=== PATIENT | male | born 1970 | race African-American/Black ===

== ENCOUNTER 2019-07-28 13:36 | Inpatient (IN) | payer OTHER ==
[2019-07-28 16:48] VITALS: BMI 32.5
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
[2019-07-28] MEDS ORDERED: cloNIDine HCL 0.1 MG TABLET PO PRN (17:47)
[2019-07-28] MEDS ORDERED: METHOCARBAMOL 500 MG TABLET PO PRN (17:47)
[2019-07-28] MEDS ORDERED: BISMUTH SUBSALICYLATE 524 MG/30 ML UD PO PRN (17:47)
[2019-07-28] MEDS ORDERED: MENTHOL/PHENOL 1 EACH UD MM PRN (17:47)
[2019-07-28] MEDS ORDERED: MELATONIN 5 MG TABLETS PO PRN (17:47)
[2019-07-28] MEDS ORDERED: hydrOXYzine PAMOATE 25 MG CAPSULE (FP) PO PRN (17:47)
[2019-07-28] MEDS ORDERED: MAGNESIUM HYDROX 2400MG/30ML ORAL SUSPENSION 30 ML CUP PO PRN (17:47)
[2019-07-28] MEDS ORDERED: MAG HYDROX/AL HYDROX/SIMETH 30 ML UNIT-DOSE CUP PO PRN (17:47)
[2019-07-28] MEDS ORDERED: MAGNESIUM CITRATE 300 ML BOTTLE PO PRN (17:47)
[2019-07-28] MEDS ORDERED: IBUPROFEN 400 MG TABLET (FP) PO PRN (17:47)
[2019-07-28] MEDS ORDERED: ACETAMINOPHEN 325 MG TABLET (FP) PO PRN ×2 (17:47)
[2019-07-28] MEDS ORDERED: METHADONE HCL 10 MG TABLET (FOR DETOX USE ONLY) PO ONE (19:00)
[2019-07-28] MEDS ORDERED: LEVETIRACETAM 750 MG PO SCH (22:00)
[2019-07-28] MEDS ORDERED: levETIRAcetam 250 MG TABLET (FP) PO SCH (22:00)
[2019-07-28] MEDS: QUEtiapine FUMARATE 200 MG TABLET PO SCH (22:17)
[2019-07-28] MEDS: levETIRAcetam 500 MG TABLET (FP) PO SCH (22:17)
[2019-07-28] MEDS: THIAMINE HCL 100 MG TABLET (FP) PO SCH (22:18)
[2019-07-29] MEDS ORDERED: METHADONE HCL 10 MG TABLET (FOR DETOX USE ONLY) ONE (09:00)
[2019-07-29] MEDS ORDERED: METHADONE HCL 5 MG TABLET (FOR DETOX USE ONLY) ONE (09:00)
[2019-07-29] MEDS ORDERED: METHADONE (DETOX) 20 MG, METHADONE (DETOX) 5 MG PO ONE (10:00)
[2019-07-29] MEDS: levETIRAcetam 500 MG TABLET (FP) PO SCH ×2 (10:40→22:07)
[2019-07-29] MEDS: PRENATAL VITAMINS W/ FOLIC ACID TABLET (FP) PO SCH (10:42)
[2019-07-29 10:44] LABS: HEMATOCRIT 36.1 % (35.4-49); HEMOGLOBIN 12.2 GM/dL (11.7-16.9); MCH 28.6 pg (25.7-33.7); MCHC 33.7 g/dl (32.0-35.9); MEAN CELL VOLUME 84.9 fl (80-96); MEAN PLT VOLUME 8.3 fl (7.5-11.1); PLATELET COUNT 345 K/MM3 (134-434); RBC 4.25 M/mm3 (4.00-5.60); RDW 15.9 % (11.9-15.9); WHITE BLOOD COUNT 8.7 K/mm3 (4.0-10.0)
[2019-07-29 10:50] LABS: ALBUMIN 3.3 g/dl (3.4-5.0); BILIRUBIN,TOTAL 0.2 mg/dL (0.2-1); BLOOD UREA NITROGEN 10.6 mg/dL (7-18); CALCIUM 8.8 mg/dL (8.5-10.1); CREATININE 0.8 mg/dL (0.55-1.3); POTASSIUM 3.6 mmol/L (3.5-5.1); TOT PROT 6.8 g/dl (6.4-8.2)
--- NOTE | 2019-07-29 11:38 | PN ---
BHS COWS - Scale Resting Pulse: 1= [place] 81-100 Sweatin= Chills/Flushing Restless Observation: 0= Sits Still Pupil Size: 1= Pupils >than Normal Bone or Joint Aches: 1= Mild Discomfort Runny Nose/ Eye Tearin= Nasal Congestion GI Upset > 30mins: 2= Nausea/Diarrhea Tremor Observation of Outstretched Hands: 2= Slight Tremor Visible Yawning Observation: 1= 1-2x During Session Anxiety or Irritability: 1=Feels Anxious/Irritable Goose Flesh Skin: 3=Piloerection COWS Score: 14 BHS Progress Note (SOAP) Subjective: doing well with methadone detox regimen tolerate food and fluid well social with peers in day room discuss aftercare with staff encourage the patient to consider medication assisted treatment program 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 narcan from pharmacy Objective: 07/29/19 11:45 Vital Signs Temperature 97.4 F L 07/29/19 09:34 Pulse Rate 83 07/29/19 09:34 Respiratory Rate 18 07/29/19 09:34 Blood Pressure 108/70 07/29/19 09:34 O2 Sat by Pulse Oximetry (%) Laboratory Last Values WBC 8.7 K/mm3 (4.0-10.0) 07/29/19 08:30 RBC 4.25 M/mm3 (4.00-5.60) 07/29/19 08:30 Hgb 12.2 GM/dL (11.7-16.9) 07/29/19 08:30 Hct 36.1 % (35.4-49) 07/29/19 08:30 MCV 84.9 fl (80-96) 07/29/19 08:30 MCH 28.6 pg (25.7-33.7) 07/29/19 08:30 MCHC 33.7 g/dl (32.0-35.9) 07/29/19 08:30 RDW 15.9 % (11.9-15.9) 07/29/19 08:30 Plt Count 345 K/MM3 (134-434) 07/29/19 08:30 MPV 8.3 fl (7.5-11.1) 07/29/19 08:30 Sodium 140 mmol/L (136-145) 07/29/19 08:30 Potassium 3.6 mmol/L (3.5-5.1) 07/29/19 08:30 Chloride 104 mmol/L (98-107) 07/29/19 08:30 Carbon Dioxide 28 mmol/L (21-32) 07/29/19 08:30 Anion Gap 9 MMOL/L (8-16) 07/29/19 08:30 BUN 10.6 mg/dL (7-18) 07/29/19 08:30 Creatinine 0.8 mg/dL (0.55-1.3) 07/29/19 08:30 Est GFR (CKD-EPI)AfAm 121.57 07/29/19 08:30 Est GFR (CKD-EPI)NonAf 104.89 07/29/19 08:30 Random Glucose 120 mg/dL (74-106) H 07/29/19 08:30 Calcium 8.8 mg/dL (8.5-10.1) 07/29/19 08:30 Total Bilirubin 0.2 mg/dL (0.2-1) 07/29/19 08:30 AST 9 U/L (15-37) L 07/29/19 08:30 ALT 24 U/L (13-61) 07/29/19 08:30 Alkaline Phosphatase 69 U/L (45-117) 07/29/19 08:30 Total Protein 6.8 g/dl (6.4-8.2) 07/29/19 08:30 Albumin 3.3 g/dl (3.4-5.0) L 07/29/19 08:30 lab noted Assessment: 07/29/19 11:46 opiate withdrawal sx Plan: continue methadone detox regimen
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
[2019-07-29] MEDS: THIAMINE HCL 100 MG TABLET (FP) PO SCH (22:07)
[2019-07-29] MEDS: QUEtiapine FUMARATE 200 MG TABLET PO SCH (22:07)
[2019-07-29] MEDS: DIVALPROEX SODIUM 250 MG TABLET E.C. PO SCH (22:07)
[2019-07-30] MEDS ORDERED: METHADONE HCL 10 MG TABLET (FOR DETOX USE ONLY) PO ONE (10:00)
[2019-07-30] MEDS ORDERED: DICYCLOMINE HCL 10 MG CAPSULE PO ONE (10:17)
--- NOTE | 2019-07-30 10:23 | PN ---
S COWS - Scale Resting Pulse: 0= [place] 80 or Below Sweatin= Chills/Flushing Restless Observation: 0= Sits Still Pupil Size: 1= Pupils >than Normal Bone or Joint Aches: 1= Mild Discomfort Runny Nose/ Eye Tearin= Nasal Congestion GI Upset > 30mins: 2= Nausea/Diarrhea Tremor Observation of Outstretched Hands: 2= Slight Tremor Visible Yawning Observation: 1= 1-2x During Session Anxiety or Irritability: 2=Irritable/Anxious Goose Flesh Skin: 0=Smooth Skin COWS Score: 11 [facility] Progress Note (SOAP) Subjective: c/o stomach cramping tremor shaking bentyl 20 mg x 1 now encourage maalox Objective: 07/30/19 10:20 Vital Signs Temperature 97.3 F L 07/30/19 09:35 Pulse Rate 72 07/30/19 09:35 Respiratory Rate 18 07/30/19 09:35 Blood Pressure 103/67 07/30/19 09:35 O2 Sat by Pulse Oximetry (%) Laboratory Last Values WBC 8.7 K/mm3 (4.0-10.0) 07/29/19 08:30 RBC 4.25 M/mm3 (4.00-5.60) 07/29/19 08:30 Hgb 12.2 GM/dL (11.7-16.9) 07/29/19 08:30 Hct 36.1 % (35.4-49) 07/29/19 08:30 MCV 84.9 fl (80-96) 07/29/19 08:30 MCH 28.6 pg (25.7-33.7) 07/29/19 08:30 MCHC 33.7 g/dl (32.0-35.9) 07/29/19 08:30 RDW 15.9 % (11.9-15.9) 07/29/19 08:30 Plt Count 345 K/MM3 (134-434) 07/29/19 08:30 MPV 8.3 fl (7.5-11.1) 07/29/19 08:30 Sodium 140 mmol/L (136-145) 07/29/19 08:30 Potassium 3.6 mmol/L (3.5-5.1) 07/29/19 08:30 Chloride 104 mmol/L (98-107) 07/29/19 08:30 Carbon Dioxide 28 mmol/L (21-32) 07/29/19 08:30 Anion Gap 9 MMOL/L (8-16) 07/29/19 08:30 BUN 10.6 mg/dL (7-18) 07/29/19 08:30 Creatinine 0.8 mg/dL (0.55-1.3) 07/29/19 08:30 Est GFR (CKD-EPI)AfAm 121.57 07/29/19 08:30 Est GFR (CKD-EPI)NonAf 104.89 07/29/19 08:30 Random Glucose 120 mg/dL (74-106) H 07/29/19 08:30 Calcium 8.8 mg/dL (8.5-10.1) 07/29/19 08:30 Total Bilirubin 0.2 mg/dL (0.2-1) 07/29/19 08:30 AST 9 U/L (15-37) L 07/29/19 08:30 ALT 24 U/L (13-61) 07/29/19 08:30 Alkaline Phosphatase 69 U/L (45-117) 07/29/19 08:30 Total Protein 6.8 g/dl (6.4-8.2) 07/29/19 08:30 Albumin 3.3 g/dl (3.4-5.0) L 07/29/19 08:30 RPR Titer Nonreactive (NONREACTIVE) 07/29/19 08:30 lab noted 07/30/19 10:23 fasting glucose Assessment: 07/30/19 10:24 opiate withdrawal sx gerd discontinue motrin begin aspirin and zantac Plan: continue methadone detox regimen
[2019-07-30] MEDS: levETIRAcetam 500 MG TABLET (FP) PO SCH ×2 (10:33→22:05)
[2019-07-30] MEDS: PRENATAL VITAMINS W/ FOLIC ACID TABLET (FP) PO SCH (10:33)
[2019-07-30] MEDS: DIVALPROEX SODIUM 250 MG TABLET E.C. PO SCH ×2 (10:37→22:06)
[2019-07-30] MEDS: RANITIDINE HCL 150 MG TABLET (FP) PO SCH ×2 (11:10→22:06)
[2019-07-30] MEDS: ASPIRIN 81 MG CHEWABLE TABLETS PO SCH (14:09)
[2019-07-30] MEDS: THIAMINE HCL 100 MG TABLET (FP) PO SCH (22:05)
[2019-07-30] MEDS: QUEtiapine FUMARATE 200 MG TABLET PO SCH (22:06)
[2019-07-31] MEDS ORDERED: METHADONE (DETOX) 10 MG, METHADONE (DETOX) 5 MG PO ONE (10:00)
[2019-07-31] MEDS ORDERED: METHADONE HCL 10 MG TABLET (FOR DETOX USE ONLY) ONE (10:13)
[2019-07-31] MEDS ORDERED: METHADONE HCL 5 MG TABLET (FOR DETOX USE ONLY) ONE (10:13)
[2019-07-31] MEDS: DIVALPROEX SODIUM 250 MG TABLET E.C. PO SCH ×2 (10:14→22:03)
[2019-07-31] MEDS: levETIRAcetam 500 MG TABLET (FP) PO SCH ×2 (10:15→22:04)
[2019-07-31] MEDS: ASPIRIN 81 MG CHEWABLE TABLETS PO SCH (10:16)
[2019-07-31] MEDS: PRENATAL VITAMINS W/ FOLIC ACID TABLET (FP) PO SCH (10:17)
[2019-07-31] MEDS: RANITIDINE HCL 150 MG TABLET (FP) PO SCH ×2 (10:17→22:03)
--- NOTE | 2019-07-31 14:10 | PN ---
BHS COWS - Scale Resting Pulse: 1= [place] 81-100 Sweatin= Chills/Flushing Restless Observation: 0= Sits Still Pupil Size: 1= Pupils >than Normal Bone or Joint Aches: 1= Mild Discomfort Runny Nose/ Eye Tearin= None GI Upset > 30mins: 1= Stomach Cramp Tremor Observation of Outstretched Hands: 1= Tremor [place], Not Seen Yawning Observation: 0= None Anxiety or Irritability: 1=Feels Anxious/Irritable Goose Flesh Skin: 0=Smooth Skin COWS Score: 7 BHS Progress Note (SOAP) Subjective: requests ensure bmi 32.6 glucose serum elevation fasting serumpending hold ensure at this time Objective: Vital Signs Temperature 98.3 F 07/31/19 13:52 Pulse Rate 87 07/31/19 13:52 Respiratory Rate 18 07/31/19 13:52 Blood Pressure 136/90 07/31/19 13:52 O2 Sat by Pulse Oximetry (%) Laboratory Last Values WBC 8.7 K/mm3 (4.0-10.0) 07/29/19 08:30 RBC 4.25 M/mm3 (4.00-5.60) 07/29/19 08:30 Hgb 12.2 GM/dL (11.7-16.9) 07/29/19 08:30 Hct 36.1 % (35.4-49) 07/29/19 08:30 MCV 84.9 fl (80-96) 07/29/19 08:30 MCH 28.6 pg (25.7-33.7) 07/29/19 08:30 MCHC 33.7 g/dl (32.0-35.9) 07/29/19 08:30 RDW 15.9 % (11.9-15.9) 07/29/19 08:30 Plt Count 345 K/MM3 (134-434) 07/29/19 08:30 MPV 8.3 fl (7.5-11.1) 07/29/19 08:30 Sodium 140 mmol/L (136-145) 07/29/19 08:30 Potassium 3.6 mmol/L (3.5-5.1) 07/29/19 08:30 Chloride 104 mmol/L (98-107) 07/29/19 08:30 Carbon Dioxide 28 mmol/L (21-32) 07/29/19 08:30 Anion Gap 9 MMOL/L (8-16) 07/29/19 08:30 BUN 10.6 mg/dL (7-18) 07/29/19 08:30 Creatinine 0.8 mg/dL (0.55-1.3) 07/29/19 08:30 Est GFR (CKD-EPI)AfAm 121.57 07/29/19 08:30 Est GFR (CKD-EPI)NonAf 104.89 07/29/19 08:30 Random Glucose 120 mg/dL (74-106) H 07/29/19 08:30 Calcium 8.8 mg/dL (8.5-10.1) 07/29/19 08:30 Total Bilirubin 0.2 mg/dL (0.2-1) 07/29/19 08:30 AST 9 U/L (15-37) L 07/29/19 08:30 ALT 24 U/L (13-61) 07/29/19 08:30 Alkaline Phosphatase 69 U/L (45-117) 07/29/19 08:30 Total Protein 6.8 g/dl (6.4-8.2) 07/29/19 08:30 Albumin 3.3 g/dl (3.4-5.0) L 07/29/19 08:30 RPR Titer Nonreactive (NONREACTIVE) 07/29/19 08:30 lab noted Assessment: 07/31/19 14:10 opiate withdrawal sx Plan: continue methadone detox regimen
[2019-07-31] MEDS: THIAMINE HCL 100 MG TABLET (FP) PO SCH (22:03)
[2019-07-31] MEDS: QUEtiapine FUMARATE 200 MG TABLET PO SCH (22:03)
[2019-08-01] MEDS ORDERED: METHADONE HCL 10 MG TABLET (FOR DETOX USE ONLY) PO ONE (10:00)
[2019-08-01] MEDS: ASPIRIN 81 MG CHEWABLE TABLETS PO SCH (10:32)
[2019-08-01] MEDS: DIVALPROEX SODIUM 250 MG TABLET E.C. PO SCH ×2 (10:32→22:12)
[2019-08-01] MEDS: levETIRAcetam 500 MG TABLET (FP) PO SCH ×2 (10:34→22:12)
[2019-08-01] MEDS: RANITIDINE HCL 150 MG TABLET (FP) PO SCH ×2 (10:35→22:13)
[2019-08-01] MEDS: PRENATAL VITAMINS W/ FOLIC ACID TABLET (FP) PO SCH (10:35)
--- NOTE | 2019-08-01 12:46 | PN ---
BHS COWS - Scale Resting Pulse: 0= [place] 80 or Below Sweatin= Chills/Flushing Restless Observation: 0= Sits Still Pupil Size: 0= Normal to Room Light Bone or Joint Aches: 1= Mild Discomfort Runny Nose/ Eye Tearin= None GI Upset > 30mins: 0= None Tremor Observation of Outstretched Hands: 1= Tremor [place], Not Seen Yawning Observation: 0= None Anxiety or Irritability: 1=Feels Anxious/Irritable Goose Flesh Skin: 0=Smooth Skin COWS Score: 4 BHS Progress Note (SOAP) Subjective: doing well with methadone detox regimen feeling better less tremor mild body ache Objective: 08/01/19 12:45 Vital Signs Temperature 97.0 F L 08/01/19 09:42 Pulse Rate 70 08/01/19 09:42 Respiratory Rate 20 08/01/19 09:42 Blood Pressure 107/64 08/01/19 09:42 O2 Sat by Pulse Oximetry (%) Laboratory Last Values WBC 8.7 K/mm3 (4.0-10.0) 07/29/19 08:30 RBC 4.25 M/mm3 (4.00-5.60) 07/29/19 08:30 Hgb 12.2 GM/dL (11.7-16.9) 07/29/19 08:30 Hct 36.1 % (35.4-49) 07/29/19 08:30 MCV 84.9 fl (80-96) 07/29/19 08:30 MCH 28.6 pg (25.7-33.7) 07/29/19 08:30 MCHC 33.7 g/dl (32.0-35.9) 07/29/19 08:30 RDW 15.9 % (11.9-15.9) 07/29/19 08:30 Plt Count 345 K/MM3 (134-434) 07/29/19 08:30 MPV 8.3 fl (7.5-11.1) 07/29/19 08:30 Sodium 140 mmol/L (136-145) 07/29/19 08:30 Potassium 3.6 mmol/L (3.5-5.1) 07/29/19 08:30 Chloride 104 mmol/L (98-107) 07/29/19 08:30 Carbon Dioxide 28 mmol/L (21-32) 07/29/19 08:30 Anion Gap 9 MMOL/L (8-16) 07/29/19 08:30 BUN 10.6 mg/dL (7-18) 07/29/19 08:30 Creatinine 0.8 mg/dL (0.55-1.3) 07/29/19 08:30 Est GFR (CKD-EPI)AfAm 121.57 07/29/19 08:30 Est GFR (CKD-EPI)NonAf 104.89 07/29/19 08:30 POC Glucometer 156 UNITS (80-120) 08/01/19 06:35 Random Glucose 120 mg/dL (74-106) H 07/29/19 08:30 Calcium 8.8 mg/dL (8.5-10.1) 07/29/19 08:30 Total Bilirubin 0.2 mg/dL (0.2-1) 07/29/19 08:30 AST 9 U/L (15-37) L 07/29/19 08:30 ALT 24 U/L (13-61) 07/29/19 08:30 Alkaline Phosphatase 69 U/L (45-117) 07/29/19 08:30 Total Protein 6.8 g/dl (6.4-8.2) 07/29/19 08:30 Albumin 3.3 g/dl (3.4-5.0) L 07/29/19 08:30 RPR Titer Nonreactive (NONREACTIVE) 07/29/19 08:30 lab noted Assessment: 08/01/19 12:45 opiate withdrawal sx Plan: continue methadone detox
[2019-08-01] MEDS: THIAMINE HCL 100 MG TABLET (FP) PO SCH (22:12)
[2019-08-01] MEDS: QUEtiapine FUMARATE 200 MG TABLET PO SCH (22:13)
[2019-08-02] MEDS ORDERED: METHADONE HCL 5 MG TABLET (FOR DETOX USE ONLY) PO ONE (06:00)
[2019-08-02 09:20] VITALS: BP 129/84; PULSE 98; TEMP 96.8
[2019-08-02] MEDS: DIVALPROEX SODIUM 250 MG TABLET E.C. PO SCH (09:38)
[2019-08-02] MEDS: RANITIDINE HCL 150 MG TABLET (FP) PO SCH (09:38)
[2019-08-02] MEDS: PRENATAL VITAMINS W/ FOLIC ACID TABLET (FP) PO SCH (09:38)
[2019-08-02] MEDS: ASPIRIN 81 MG CHEWABLE TABLETS PO SCH (09:38)
[2019-08-02] MEDS: levETIRAcetam 500 MG TABLET (FP) PO SCH (09:39)
--- NOTE | 2019-08-02 18:25 | DS ---
[facility] Detox Discharge Summary Admission Date: 07/28/19 Discharge Date: 08/02/19 - History Present History: Opioid Dependence Additional Comments: PATIENT GOING TO [facility] ([place], [place]) FOR AFTERCARE. PATIENT ADVISED TO FOLLOW-UP WITH SECTION HAND HELPER AFTER DISCHARGE FROM DETOX FOR GENERAL MEDICAL ASSESSMENT AND FOR ELEVATED RANDOM GLUCOSE LEVEL AND FOR ELEVATED BGM LEVEL NOTED ON DETOX LABORATORY ASSESSMENT. PATIENT VERBALIZED UNDERSTANDING OF RECOMMENDATIONS. PATIENT WAS DISCHARGED FROM DETOX UNIT IN STABLE MEDICAL CONDITION. Pertinent Past History: Bipolar Disorder, Schizoaffective Disorder, P.T.S.D., History Of CVA, History OF Seizures, Depression. - Physical Exam Results Vital Signs: Vital Signs Temperature 96.8 F L 08/02/19 09:20 Pulse Rate 98 H 08/02/19 09:20 Respiratory Rate 18 08/02/19 09:20 Blood Pressure 129/84 08/02/19 09:20 O2 Sat by Pulse Oximetry (%) Pertinent Admission Physical Exam Findings: WITHDRAWAL SYMPTOMS. Laboratory Tests 07/29/19 07/29/19 07/29/19 08:30 08:30 08:30 WBC 8.7 RBC 4.25 Hgb 12.2 Hct 36.1 MCV 84.9 MCH 28.6 MCHC 33.7 RDW 15.9 Plt Count 345 MPV 8.3 Sodium 140 Potassium 3.6 Chloride 104 Carbon Dioxide 28 Anion Gap 9 BUN 10.6 Creatinine 0.8 Est GFR (CKD-EPI)AfAm 121.57 Est GFR (CKD-EPI)NonAf 104.89 POC Glucometer Random Glucose 120 H Calcium 8.8 Total Bilirubin 0.2 AST 9 L ALT 24 Alkaline Phosphatase 69 Total Protein 6.8 Albumin 3.3 L RPR Titer Nonreactive 08/01/19 06:35 WBC RBC Hgb Hct MCV MCH MCHC RDW Plt Count MPV Sodium Potassium Chloride Carbon Dioxide Anion Gap BUN Creatinine Est GFR (CKD-EPI)AfAm Est GFR (CKD-EPI)NonAf POC Glucometer 156 Random Glucose Calcium Total Bilirubin AST ALT Alkaline Phosphatase Total Protein Albumin RPR Titer LABS NOTED. - Treatment Hospital Course: Detox Protocol Followed, Detoxed Safely, Responded well, Discharged Condition Good, Rehab Referral Accepted Patient has Accepted a Rehab Referral to: [facility] ([place], [place]). - Medication Discharge Medications: Ambulatory Orders Levetiracetam [Keppra] 750 mg PO BID #0 tablet 10/16/13 Aspirin [ASA -] 81 mg PO DAILY #30 tab.chew 05/16/14 Divalproex [Depakote -] 750 mg PO BID 04/01/15 Quetiapine Fumarate [Seroquel -] 200 mg PO HS #30 tablet 07/25/15 Gabapentin [Neurontin] 100 cap PO BID 07/28/19 Naloxone HCl [Narcan] 4 mg NS ASDIR PRN #1 spray 07/29/19 levETIRAcetam [Keppra -] 750 mg PO BID #60 tablet 08/01/19 - Diagnosis (1) Opioid dependence Status: Acute (2) CVA - cerebrovascular accident due to cerebral artery occlusion Status: Chronic (3) PTSD (post-traumatic stress disorder) Status: Chronic (4) Schizoaffective disorder Status: Chronic Qualifiers: Schizoaffective disorder type: unspecified Qualified Code(s): F25.9 - Schizoaffective disorder, unspecified (5) Seizure disorder Status: Chronic (6) Substance induced mood disorder Status: Chronic - AMA Did Patient Leave Against Medical Advice: No BHS COWS - Scale Resting Pulse: 1= [place] 81-100 Sweatin= No chills or Flushing Restless Observation: 1= Difficult to Sit Still Pupil Size: 0= Normal to Room Light Bone or Joint Aches: 0= None Runny Nose/ Eye Tearin= None GI Upset > 30mins: 0= None Tremor Observation of Outstretched Hands: 0= None Yawning Observation: 1= 1-2x During Session Anxiety or Irritability: 2=Irritable/Anxious Goose Flesh Skin: 0=Smooth Skin COWS Score: 5
== END 2019-08-02 09:58 | disposition home or self-care (01) | DRG 773 ==
LOC: YASAS 13:36 → Y3N 18:15
PROVIDERS: ADMIT Surgery; ATTEND Surgery
PROC: HZ2ZZZZ Detoxification Services for Substance Abuse Treatment (ICD-10-PCS; principal; 2019-07-28)
DX: F11.23 Opioid dependence with withdrawal (principal); F43.10 Post-traumatic stress disorder, unspecified; F25.9 Schizoaffective disorder, unspecified; F19.24 Other psychoactive substance dependence with psychoactive substance-induced mood disorder; K21.9 Gastro-esophageal reflux disease without esophagitis; G40.909 Epilepsy, unspecified, not intractable, without status epilepticus; Z86.73 Personal history of transient ischemic attack (TIA), and cerebral infarction without residual deficits; Z88.0 Allergy status to penicillin; Z88.8 Allergy status to other drugs, medicaments and biological substances; Z91.013 Allergy to seafood; Z59.0 Homelessness
CPT/HCPCS: 36415; 80053; 82962; 85027; 86593